=== PATIENT | male | born 1940 | race Caucasian/White ===

== ENCOUNTER → 2016-05-08 | Outpatient (CLI) | payer MEDICARE, BC ==
[~2016-05-08] MED LIST: CALCIUM + D 5001 TAB PO; LIPITOR20 MG PO; LORATADINE10 MG PO; PRILOSEC 20MG20 MG PO; SYSTANE BALANCE10 ML OP
== END ==
LOC: LAB 10:35
DX: R97.20 Elevated prostate specific antigen [PSA] (principal)

== ENCOUNTER → 2016-07-10 | Outpatient (CLI) | payer MEDICARE, BC ==
[2015-07-18 10:44] VITALS: BP 121/81
== END ==
LOC: LAB 07:38
DX: R73.02 Impaired glucose tolerance (oral) (principal); E78.2 Mixed hyperlipidemia; I44.1 Atrioventricular block, second degree; Z12.5 Encounter for screening for malignant neoplasm of prostate; N52.03 Combined arterial insufficiency and corporo-venous occlusive erectile dysfunction

== ENCOUNTER → 2016-07-17 | Outpatient (CLI) | payer MEDICARE, BC ==
[2016-07-17 10:20] VITALS: BP 136/70
== END ==
LOC: AMSURD 10:20
DX: I44.1 Atrioventricular block, second degree (principal)

== ENCOUNTER → 2016-10-25 | Outpatient (CLI) | payer MEDICARE, BC ==
[2016-07-17 10:20] VITALS: BP 136/70
== END ==
LOC: CARDREHAB 13:05
DX: R53.83 Other fatigue (principal); G47.10 Hypersomnia, unspecified; R06.83 Snoring
CPT/HCPCS: G0399

== ENCOUNTER → 2017-05-21 | Outpatient (CLI) | payer MEDICARE, BC ==
[2016-07-17 10:20] VITALS: BP 136/70
== END ==
LOC: LAB 10:06
DX: R97.20 Elevated prostate specific antigen [PSA] (principal)

== ENCOUNTER → 2017-07-12 | Outpatient (CLI) | payer MEDICARE, BC ==
[2016-07-17 10:20] VITALS: BP 136/70
[2017-07-12 07:57] LABS: EOS # 0.1 (0.04-0.40); EOS % 2.8 % (0.0-4.0); HEMATOCRIT 46.5 % (42.0-52.0); HEMOGLOBIN 15.4 g/dL (13.5-18.0); LYMPH# 1.5 (1.50-4.00); MEAN CELL VOLUME 93 fl (78-100); MEAN CORPUSCULAR HEMOGLOBIN 31 pg (27-31); MEAN CORPUSCULAR HGB CONC 33 g/dL (33-37); MEAN PLATELET VOLUME 9.5 fl (7.4-10.4); MONO # 0.3 (0.20-0.80); NEU # 2.4 (1.40-6.50); PLATELET COUNT 161 K/mm3 (130-400); RED BLOOD COUNT 4.99 M/mm3 (4.20-5.60); RED CELL DISTRIBUTION WIDTH 13.4 % (11.5-14.5); WHITE BLOOD COUNT 4.3 K/mm3 (4.8-10.8)
[2017-07-12 08:09] LABS: ALBUMIN 3.9 g/dL (3.5-5.0); POTASSIUM 4.4 mmol/L (3.6-5.0); TOTAL BILIRUBIN 0.5 mg/dL (0.2-1.3)
[2017-07-12 08:13] LABS: PH-URINE 6.5 (5.0 - 8.0); URINE APPEARANCE CLEAR; URINE BILIRUBIN NEGATIVE (NEGATIVE); URINE BLOOD 50 ery/uL (NEGATIVE); URINE COLOR YELLOW; URINE GLUCOSE NEGATIVE (NEGATIVE); URINE KETONE NEGATIVE (NEGATIVE); URINE LEUKOCYTE ESTERASE NEGATIVE (NEGATIVE); URINE MUCUS PRESENT (NOT PRESENT); URINE NITRATE NEGATIVE (NEGATIVE); URINE PROTEIN(semi-quant) TRACE mg/dL (NEGATIVE); URINE UROBILINOGEN NORMAL (NORMAL); URINE WBC 0-1 /hpf (0-3)
[2017-07-12 09:13] LABS: ERYTHROCYTE SEDIMENTATION RATE 0 mm/hr (0-20)
[2017-07-13 00:43] LABS: TESTOSTERONE 631 ng/dL (221-716)
== END ==
LOC: LAB 07:42
PROVIDERS: Internal Medicine
DX: I44.1 Atrioventricular block, second degree (principal); E78.2 Mixed hyperlipidemia; R73.02 Impaired glucose tolerance (oral); Z12.5 Encounter for screening for malignant neoplasm of prostate; N52.9 Male erectile dysfunction, unspecified; Z12.11 Encounter for screening for malignant neoplasm of colon; Z88.5 Allergy status to narcotic agent

== ENCOUNTER → 2018-05-15 | Outpatient (CLI) | payer MEDICARE, BC ==
[2016-07-17 10:20] VITALS: BP 136/70
== END ==
LOC: LAB 09:51
DX: R97.20 Elevated prostate specific antigen [PSA] (principal)

== ENCOUNTER → 2018-07-15 | Outpatient (CLI) | payer MEDICARE, BC ==
[2016-07-17 10:20] VITALS: BP 136/70
[2018-07-15 07:25] LABS: URINE WBC 0 /hpf (0-3)
[2018-07-15 07:35] LABS: EOS # 0.2 (0.04-0.40); EOS % 3.8 % (0.0-4.0); HEMATOCRIT 45.3 % (42.0-52.0); LYMPH# 1.4 (1.50-4.00); MEAN CELL VOLUME 93 fl (78-100); MEAN CORPUSCULAR HEMOGLOBIN 31 pg (27-31); MEAN CORPUSCULAR HGB CONC 33 g/dL (33-37); MEAN PLATELET VOLUME 9.1 fl (7.4-10.4); MONO # 0.3 (0.20-0.80); NEU # 2.3 (1.40-6.50); PLATELET COUNT 156 K/mm3 (130-400); RED BLOOD COUNT 4.88 M/mm3 (4.20-5.60); RED CELL DISTRIBUTION WIDTH 13.5 % (11.5-14.5); WHITE BLOOD COUNT 4.2 K/mm3 (4.8-10.8)
[2018-07-15 07:52] LABS: CALCIUM 8.9 mg/dL (8.4-10.2); POTASSIUM 4.4 mmol/L (3.6-5.0); TOTAL BILIRUBIN 0.7 mg/dL (0.2-1.3)
[2018-07-15 08:40] LABS: ERYTHROCYTE SEDIMENTATION RATE 2 mm/hr (0-20)
[2018-07-15 09:45] LABS: URINE APPEARANCE CLEAR; URINE BILIRUBIN NEGATIVE (NEGATIVE); URINE BLOOD TRACE (NEGATIVE); URINE COLOR YELLOW; URINE GLUCOSE NEGATIVE (NEGATIVE); URINE KETONE NEGATIVE (NEGATIVE); URINE LEUKOCYTE ESTERASE NEGATIVE (NEGATIVE); URINE MUCUS PRESENT (NOT PRESENT); URINE NITRATE NEGATIVE (NEGATIVE); URINE PROTEIN(semi-quant) NEGATIVE (NEGATIVE); URINE UROBILINOGEN NORMAL (NORMAL)
[2018-07-15 17:23] LABS: TESTOSTERONE 640 ng/dL (221-716)
== END ==
LOC: LAB 07:19
PROVIDERS: Internal Medicine
DX: Z12.5 Encounter for screening for malignant neoplasm of prostate (principal); Z12.11 Encounter for screening for malignant neoplasm of colon; N52.9 Male erectile dysfunction, unspecified; I44.1 Atrioventricular block, second degree; E74.39 Other disorders of intestinal carbohydrate absorption; E78.2 Mixed hyperlipidemia; E78.5 Hyperlipidemia, unspecified

== ENCOUNTER → 2018-11-18 | Outpatient (CLI) | payer MEDICARE, BC ==
[2016-07-17 10:20] VITALS: BP 136/70
== END ==
LOC: LAB 10:07
PROVIDERS: Urology
DX: R97.20 Elevated prostate specific antigen [PSA] (principal)

== ENCOUNTER 2019-05-10 20:43 | Emergency (ER) | payer MEDICARE, BC ==
[2019-05-10] MEDS ORDERED: ATORVASTATIN CA20 MG PO (21:16)
[2019-05-10] MEDS ORDERED: AMOXICILLIN 50500 MG PO (21:43)
[2019-05-10 21:55] VITALS: BP 153/87
== END 2019-05-10 21:55 | disposition home or self-care (01) ==
LOC: ED 20:43
DX: S01.512A Laceration without foreign body of oral cavity, initial encounter (principal); E78.5 Hyperlipidemia, unspecified; K21.9 Gastro-esophageal reflux disease without esophagitis; X58.XXXA Exposure to other specified factors, initial encounter

== ENCOUNTER → 2019-06-09 | Outpatient (CLI) | payer MEDICARE, BC ==
[2019-05-10 21:55] VITALS: BP 153/87
[~2019-06-09] MED LIST changes: +AMOXICILLIN 50500 MG PO; +ATORVASTATIN CA20 MG PO
== END ==
LOC: LAB 14:42
DX: R97.20 Elevated prostate specific antigen [PSA] (principal)

== ENCOUNTER → 2019-08-07 | Outpatient (CLI) | payer MEDICARE, BC ==
[2019-08-07 11:00] LABS: EOS # 0.1 (0.04-0.40); EOS % 1.9 % (0.0-4.0); HEMATOCRIT 45.7 % (42.0-52.0); HEMOGLOBIN 14.9 g/dL (13.5-18.0); LYMPH# 1.3 (1.50-4.00); MEAN CELL VOLUME 94 fl (78-100); MEAN CORPUSCULAR HEMOGLOBIN 31 pg (27-31); MEAN CORPUSCULAR HGB CONC 33 g/dL (33-37); MONO # 0.5 (0.20-0.80); NEU # 3.8 (1.40-6.50); PLATELET COUNT 176 K/mm3 (130-400); RED BLOOD COUNT 4.88 M/mm3 (4.20-5.60); RED CELL DISTRIBUTION WIDTH 13.3 % (11.5-14.5); WHITE BLOOD COUNT 5.8 K/mm3 (4.8-10.8)
[2019-08-07 11:04] LABS: ALBUMIN 3.8 g/dL (3.4-4.8); POTASSIUM 4.5 mmol/L (3.5-5.1)
[2019-08-07 11:06] LABS: CALCIUM 9.2 mg/dL (8.3-10.5)
[2019-08-07 11:07] LABS: TOTAL PROTEIN 6.6 g/dL (6.2-8.1)
[2019-08-07 11:09] LABS: TOTAL BILIRUBIN 0.4 mg/dL (0.2-1.2)
[2019-08-07 11:13] LABS: URINE APPEARANCE CLEAR; URINE BILIRUBIN NEGATIVE (NEGATIVE); URINE BLOOD TRACE (NEGATIVE); URINE COLOR YELLOW; URINE GLUCOSE NEGATIVE (NEGATIVE); URINE KETONE NEGATIVE (NEGATIVE); URINE LEUKOCYTE ESTERASE NEGATIVE (NEGATIVE); URINE MUCUS PRESENT (NOT PRESENT); URINE NITRATE NEGATIVE (NEGATIVE); URINE PROTEIN(semi-quant) TRACE mg/dL (NEGATIVE); URINE UROBILINOGEN NORMAL (NORMAL); URINE WBC 0-1 /hpf (0-3)
[2019-08-07 12:19] LABS: ERYTHROCYTE SEDIMENTATION RATE 17 mm/hr (0-20)
== END ==
LOC: LAB 10:39
PROVIDERS: Internal Medicine
DX: Z12.5 Encounter for screening for malignant neoplasm of prostate (principal); I44.1 Atrioventricular block, second degree; R73.02 Impaired glucose tolerance (oral); E78.5 Hyperlipidemia, unspecified; N52.9 Male erectile dysfunction, unspecified

== ENCOUNTER → 2019-08-11 | Outpatient (CLI) | payer MEDICARE, BC | LOC: AMSURD 10:14 | DX: I44.1 Atrioventricular block, second degree (principal) ==

== ENCOUNTER → 2019-09-04 | Outpatient (CLI) | payer MEDICARE, BC ==
[2019-09-04 16:46] LABS: URINE WBC 0 /hpf (0-3)
[2019-09-04 17:25] LABS: URINE APPEARANCE CLEAR; URINE COLOR YELLOW
[2019-09-04 17:26] LABS: PH-URINE 6.5 (5.0 - 8.0); URINE BILIRUBIN NEGATIVE (NEGATIVE); URINE BLOOD 250 ery/uL (NEGATIVE); URINE GLUCOSE NEGATIVE (NEGATIVE); URINE KETONE NEGATIVE (NEGATIVE); URINE LEUKOCYTE ESTERASE NEGATIVE (NEGATIVE); URINE NITRATE NEGATIVE (NEGATIVE); URINE PROTEIN(semi-quant) NEGATIVE (NEGATIVE); URINE UROBILINOGEN NORMAL (NORMAL)
[2019-09-04 17:27] LABS: URINE MUCUS PRESENT (NOT PRESENT)
== END ==
LOC: LAB 16:32
PROVIDERS: Internal Medicine
DX: R31.9 Hematuria, unspecified (principal)

== ENCOUNTER → 2019-09-18 | Outpatient (CLI) | payer MEDICARE, BC | LOC: CARDLAB → CARDREHAB 08:56 → CARDLAB 09:23 | DX: G47.33 Obstructive sleep apnea (adult) (pediatric) (principal) | CPT/HCPCS: G0399 ==

== ENCOUNTER → 2020-09-06 | Outpatient (CLI) | payer MEDICARE, BC ==
[2020-09-06 07:52] LABS: BASO # 0.02 (0.02-0.10); EOS % 2.1 % (0.0-4.0); HEMATOCRIT 44.6 % (42.0-52.0); HEMOGLOBIN 14.8 g/dL (13.5-18.0); MEAN CELL VOLUME 92 fl (78-100); MEAN CORPUSCULAR HEMOGLOBIN 31 pg (27-31); MEAN CORPUSCULAR HGB CONC 33 g/dL (33-37); MEAN PLATELET VOLUME 9.2 fl (7.4-10.4); MONO # 0.31 (0.20-0.80); NEU # 2.82 (1.40-6.50); PLATELET COUNT 145 K/mm3 (130-400); RED BLOOD COUNT 4.86 M/mm3 (4.20-5.60); RED CELL DISTRIBUTION WIDTH 12.8 % (11.5-14.5); WHITE BLOOD COUNT 4.7 K/mm3 (4.8-10.8)
[2020-09-06 08:05] LABS: ALBUMIN 3.9 g/dL (3.4-4.8); POTASSIUM 4.4 mmol/L (3.5-5.1)
[2020-09-06 08:06] LABS: CALCIUM 8.8 mg/dL (8.3-10.5)
[2020-09-06 08:08] LABS: TOTAL PROTEIN 6.7 g/dL (6.2-8.1)
[2020-09-06 08:10] LABS: TOTAL BILIRUBIN 0.7 mg/dL (0.2-1.2)
== END ==
LOC: LAB 07:23
PROVIDERS: Internal Medicine
DX: I44.1 Atrioventricular block, second degree (principal); E78.5 Hyperlipidemia, unspecified; K90.9 Intestinal malabsorption, unspecified; R73.03 Prediabetes

== ENCOUNTER → 2020-11-10 | Outpatient (CLI) | payer MEDICARE, BC | LOC: LAB 10:05 | DX: R97.20 Elevated prostate specific antigen [PSA] (principal); R35.1 Nocturia ==

== ENCOUNTER → 2020-12-29 | Outpatient (CLI) | payer MEDICARE, BC | LOC: LAB 10:24 | DX: K90.9 Intestinal malabsorption, unspecified (principal) ==

== ENCOUNTER → 2021-02-20 | Outpatient (CLI) | payer MEDICARE, BC | LOC: RAD 10:27 | DX: M25.552 Pain in left hip (principal) ==

== ENCOUNTER → 2021-05-16 | Outpatient (CLI) | payer MEDICARE, BC ==
[2021-05-16 08:26] LABS: BASO # 0.01 K/mm3 (0.02-0.10); EOS # 0.11 K/mm3 (0.04-0.40); EOS % 2.6 % (0.0-4.0); HEMATOCRIT 46.4 % (42.0-52.0); HEMOGLOBIN 15.5 g/dL (13.5-18.0); LYMPH# 1.42 K/mm3 (1.50-4.00); MEAN CELL VOLUME 95 fl (78-100); MEAN CORPUSCULAR HEMOGLOBIN 32 pg (27-31); MEAN CORPUSCULAR HGB CONC 33 g/dL (33-37); MEAN PLATELET VOLUME 8.7 fl (7.4-10.4); MONO # 0.25 K/mm3 (0.20-0.80); NEU # 2.44 K/mm3 (1.40-6.50); PLATELET COUNT 153 K/mm3 (130-400); RED BLOOD COUNT 4.91 M/mm3 (4.20-5.60); WHITE BLOOD COUNT 4.2 K/mm3 (4.8-10.8)
[2021-05-16 09:47] LABS: POTASSIUM 4.1 mmol/L (3.5-5.1)
[2021-05-16 09:48] LABS: CALCIUM 9.3 mg/dL (8.3-10.5)
[2021-05-16 09:49] LABS: TOTAL PROTEIN 6.7 g/dL (6.2-8.1)
[2021-05-16 09:51] LABS: TOTAL BILIRUBIN 0.7 mg/dL (0.2-1.2)
[2021-05-16 09:56] LABS: MAGNESIUM 2.08 mg/dL (1.60-2.60)
== END ==
LOC: LAB 08:07
PROVIDERS: Internal Medicine
DX: I44.1 Atrioventricular block, second degree (principal); E78.5 Hyperlipidemia, unspecified; K90.9 Intestinal malabsorption, unspecified; R73.03 Prediabetes

== ENCOUNTER → 2021-10-02 | Outpatient (CLI) | payer MEDICARE, BC ==
[2021-10-02 07:55] LABS: URINE WBC 0 /hpf (0-3)
[2021-10-02 11:42] LABS: BASO # 0.02 K/mm3 (0.02-0.10); EOS # 0.16 K/mm3 (0.04-0.40); EOS % 4.1 % (0.0-4.0); HEMOGLOBIN 14.7 g/dL (13.5-18.0); MEAN CELL VOLUME 93 fl (78-100); MEAN CORPUSCULAR HEMOGLOBIN 31 pg (27-31); MEAN CORPUSCULAR HGB CONC 33 g/dL (33-37); MEAN PLATELET VOLUME 9.2 fl (7.4-10.4); MONO # 0.37 K/mm3 (0.20-0.80); NEU # 1.99 K/mm3 (1.40-6.50); PLATELET COUNT 226 K/mm3 (130-400); RED BLOOD COUNT 4.74 M/mm3 (4.20-5.60); RED CELL DISTRIBUTION WIDTH 12.9 % (11.5-14.5); WHITE BLOOD COUNT 3.9 K/mm3 (4.8-10.8)
[2021-10-02 13:32] LABS: POTASSIUM 4.3 mmol/L (3.5-5.1)
[2021-10-02 13:33] LABS: ALBUMIN 3.7 g/dL (3.4-4.8)
[2021-10-02 13:34] LABS: CALCIUM 9.1 mg/dL (8.3-10.5)
[2021-10-02 13:35] LABS: TOTAL PROTEIN 6.4 g/dL (6.2-8.1)
[2021-10-02 13:37] LABS: TOTAL BILIRUBIN 0.5 mg/dL (0.2-1.2)
[2021-10-02 14:29] LABS: URINE APPEARANCE CLEAR; URINE COLOR YELLOW
[2021-10-02 14:30] LABS: URINE BILIRUBIN NEGATIVE (NEGATIVE); URINE BLOOD NEGATIVE (NEGATIVE); URINE GLUCOSE NEGATIVE (NEGATIVE); URINE KETONE NEGATIVE (NEGATIVE); URINE LEUKOCYTE ESTERASE NEGATIVE (NEGATIVE); URINE NITRATE NEGATIVE (NEGATIVE); URINE UROBILINOGEN NORMAL (NORMAL)
[2021-10-02 14:35] LABS: URINE PROTEIN(semi-quant) TRACE (NEGATIVE)
[2021-10-03 16:03] LABS: TESTOSTERONE 602 ng/dL (221-716)
== END ==
LOC: LAB 07:45
PROVIDERS: Internal Medicine
DX: Z12.11 Encounter for screening for malignant neoplasm of colon (principal); K90.9 Intestinal malabsorption, unspecified; E78.5 Hyperlipidemia, unspecified; I44.1 Atrioventricular block, second degree; F52.21 Male erectile disorder; R73.03 Prediabetes

== ENCOUNTER → 2021-12-11 | Outpatient (CLI) | payer MEDICARE, BC | LOC: LAB 14:56 | DX: R97.20 Elevated prostate specific antigen [PSA] (principal) ==

== ENCOUNTER → 2022-06-07 | Outpatient (CLI) | payer MEDICARE, BC | LOC: LAB 09:41 | DX: R97.20 Elevated prostate specific antigen [PSA] (principal) ==

== ENCOUNTER → 2023-08-01 | Outpatient (CLI) | payer MEDICARE, BC | LOC: LAB 12:16 | DX: R97.20 Elevated prostate specific antigen [PSA] (principal) ==

== ENCOUNTER → 2023-10-31 | Outpatient (CLI) | payer MEDICARE, BC ==
[2023-10-31 08:00] LABS: URINE WBC 0 /hpf (0-3)
[2023-10-31 08:04] LABS: BASO # 0.01 K/mm3 (0.02-0.10); EOS # 0.14 K/mm3 (0.04-0.40); EOS % 3.1 % (0.0-4.0); HEMATOCRIT 44.7 % (42.0-52.0); HEMOGLOBIN 14.9 g/dL (13.5-18.0); LYMPH# 1.69 K/mm3 (1.50-4.00); MEAN CELL VOLUME 93 fl (78-100); MEAN CORPUSCULAR HEMOGLOBIN 31 pg (27-31); MEAN CORPUSCULAR HGB CONC 33 g/dL (33-37); MEAN PLATELET VOLUME 8.7 fl (7.4-10.4); MONO # 0.28 K/mm3 (0.20-0.80); NEU # 2.32 K/mm3 (1.40-6.50); PLATELET COUNT 119 K/mm3 (130-400); RED BLOOD COUNT 4.81 M/mm3 (4.20-5.60); WHITE BLOOD COUNT 4.5 K/mm3 (4.8-10.8)
[2023-10-31 08:09] LABS: ALBUMIN 3.9 g/dL (3.4-4.8)
[2023-10-31 08:10] LABS: CALCIUM 9.5 mg/dL (8.3-10.5)
[2023-10-31 08:12] LABS: TOTAL PROTEIN 6.4 g/dL (6.2-8.1)
[2023-10-31 08:13] LABS: TOTAL BILIRUBIN 0.7 mg/dL (0.2-1.2)
[2023-10-31 08:18] LABS: MAGNESIUM 2.11 mg/dL (1.60-2.60)
[2023-10-31 08:32] LABS: URINE APPEARANCE CLEAR (CLEAR); URINE BILIRUBIN NEGATIVE (NEGATIVE); URINE BLOOD TRACE (NEGATIVE); URINE COLOR YELLOW (YELLOW); URINE GLUCOSE NEGATIVE (NEGATIVE); URINE KETONE NEGATIVE (NEGATIVE); URINE LEUKOCYTE ESTERASE NEGATIVE (NEGATIVE); URINE MUCUS PRESENT (NOT PRESENT); URINE NITRATE NEGATIVE (NEGATIVE); URINE PROTEIN(semi-quant) TRACE (NEGATIVE)
[2023-10-31 22:42] LABS: TESTOSTERONE 601 ng/dL (221-716)
== END ==
LOC: LAB 07:49
PROVIDERS: Internal Medicine
DX: Z12.11 Encounter for screening for malignant neoplasm of colon (principal); K90.9 Intestinal malabsorption, unspecified; E78.5 Hyperlipidemia, unspecified; I44.1 Atrioventricular block, second degree; F52.21 Male erectile disorder; R73.03 Prediabetes

== ENCOUNTER → 2024-02-24 | Day surgery (SDC) | payer MEDICARE, BC | END | disposition home or self-care (01) | LOC: MSO 07:11 | DX: Z12.11 Encounter for screening for malignant neoplasm of colon (principal); Z86.0100 Personal history of colon polyps, unspecified; Z80.0 Family history of malignant neoplasm of digestive organs; K57.30 Diverticulosis of large intestine without perforation or abscess without bleeding | CPT/HCPCS: G0105; 00812; J2704; J7120 ==